=== PATIENT | male | born 1950 | race Caucasian/White ===

== ENCOUNTER → 2016-08-05 | Outpatient (CLI) | payer MEDICARE, OTHER ==
[~2016-08-05] MED LIST: HYDR-4246 PO; LORA10TA7 PO; MULT1TAB7 PO; OMEG1CAP52 PO; RANI150T7 PO; SIMV20TA2 PO; SIMV40TA5 PO
--- NOTE | 2016-08-05 11:11 | DI ---
Indication: ITS.REASON: M25.561 RT KNEE PAIN PROCEDURE: MRI KNEE RIGHT W/O CONTRAST: Encounter: Initial Comparison: None Technique: Multiplanar multisequence MR imaging of the right knee was performed without contrast. Findings: The lateral meniscus shows some undersurface fraying of the body and posterior horn. Complex macerated tear of the medial meniscus which is fairly extensive. The ACL and PCL are intact. The MCL and lateral collateral ligament complex are intact. No acute fracture. Degenerative subchondral edema in the medial tibial plateau and medial femoral condyle. Subchondral edema also within the patella. Large areas of full-thickness cartilage loss in the medial compartment with osteophyte formation. Lateral compartment cartilage shows a few areas of partial-thickness thinning. Patellofemoral compartment has full-thickness loss in the median ridge with deep partial-thickness loss in the medial facet. Small joint effusion and Whitman's cyst. Muscular signal intensity is normal. 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 .
== END ==
LOC: IMA 09:08
PROVIDERS: ATTEND Physician Assistant
DX: M17.11 Unilateral primary osteoarthritis, right knee (principal); M23.303 Other meniscus derangements, unspecified medial meniscus, right knee; M23.351 Other meniscus derangements, posterior horn of lateral meniscus, right knee; M25.461 Effusion, right knee; M71.21 Synovial cyst of popliteal space [Baker], right knee; M25.561 Pain in right knee